=== PATIENT | male | born 1970 | race Caucasian/White ===

== ENCOUNTER 2022-06-21 07:29 | Day surgery (SDC) | payer OTHER ==
[2022-06-18 16:07] VITALS: BMI 28.8
[2022-06-21] MEDS ORDERED: PROPOFOL 60 ML ONE (08:03)
[2022-06-21 08:40] VITALS: TEMP 98.4
[2022-06-21 08:59] VITALS: BP 115/69; PULSE 69
[2022-06-21 09:15] VITALS: RESP 16
== END 2022-06-21 09:05 | disposition home or self-care (01) ==
LOC: FASU-ENDO 07:29
PROVIDERS: ATTEND Internal Medicine Gastroenterology
PROC: 0DBL8ZX Excision of Transverse Colon, Via Natural or Artificial Opening Endoscopic, Diagnostic (ICD-10-PCS; 2022-06-21)
PROC: 0DBK8ZX Excision of Ascending Colon, Via Natural or Artificial Opening Endoscopic, Diagnostic (ICD-10-PCS; principal; 2022-06-21 08:09)
DX: Z12.11 Encounter for screening for malignant neoplasm of colon (principal); D12.2 Benign neoplasm of ascending colon; K63.5 Polyp of colon; K64.0 First degree hemorrhoids; K64.8 Other hemorrhoids
CPT/HCPCS: 82962; 88305-TC